=== PATIENT | female | born 1970 | race African-American/Black ===

== ENCOUNTER 2020-04-04 12:29 | Emergency (ER) | payer MEDICAID ==
[~2020-04-04] VITALS: Ht 175.3 cm; Wt 57.6 kg
[~2020-04-04 12:29] MED LIST: ADERAL; ALBUPOW26; HYDR-1421; LISI-646; TEMA7.5C11
[2020-04-04 14:03] VITALS: BP 135/57
== END 2020-04-04 14:11 | disposition home or self-care (01) ==
LOC: ER 12:29
DX: F41.1 Generalized anxiety disorder (principal); R11.0 Nausea; J45.909 Unspecified asthma, uncomplicated; I10 Essential (primary) hypertension; Z98.51 Tubal ligation status

== ENCOUNTER 2020-12-14 10:36 | Emergency (ER) | payer MEDICAID ==
[~2020-12-14] VITALS: Ht 175.3 cm; Wt 139.7 kg
[2020-12-14 11:26] VITALS: BP 163/108
[2020-12-14] MEDS ORDERED: traMADol HCL 50 MG TAB PO ONE (11:45)
[2020-12-14] MEDS ORDERED: LORazepam 0.5 MG TAB PO ONE (11:45)
== END 2020-12-14 13:11 | disposition home or self-care (01) ==
LOC: ER 10:36
DX: S09.90XA Unspecified injury of head, initial encounter (principal); I10 Essential (primary) hypertension; F41.9 Anxiety disorder, unspecified; Z79.899 Other long term (current) drug therapy; Y08.89XA Assault by other specified means, initial encounter; Y93.89 Activity, other specified; Y92.89 Other specified places as the place of occurrence of the external cause; Y99.8 Other external cause status
CPT/HCPCS: 70450; 70486